=== PATIENT | female | born 1930 | race Caucasian/White ===

== ENCOUNTER 2018-05-10 07:26 | Emergency (ER) | payer MEDICARE ==
[~2018-05-10] VITALS: Ht 154.9 cm; Wt 61.3 kg
[~2018-05-10 07:26] MED LIST: ASP81TEC PO; B12 PO; CALC-20 PO; CRAN1TAB PO; CYAN10007 PO; LVT.15T PO; MULT-856 PO; NITR-33 PO; PANT40TA PO
--- NOTE | 2018-05-10 07:42 | ED Fall/Injury ---
General Chief Complaint: General Problems/Pain Stated Complaint: BACK PAIN Source: patient, family (son) Exam Limitations: no limitations History of Present Illness Date Seen by Provider: May 10, 2018 Time Seen by Provider: 07:30 Initial Comments The patient presents to ER by EMS with chief complaint of a fall 2 weeks ago and having some pain and difficulty walking especially with her right leg. She has pain radiating from her lumbar spine down to her just above her knee. She has no saddle anesthesia, numbness, weakness, tingling or paresthesias, urinary hesitancy or incontinence. She has been to see her primary care doctor Dr. Pineda who has offered to do imaging and been working up her hematuria that's been intermittent for the last few weeks. Patient denies dysuria. She says her hematuria has ceased for now. She is accompanied by her son who gives most of the history. She lives at [facility]. She said she was down on the ground for probably the most 7 minutes before she got the nurse to come down and help her at her independent living suite. Allergies and Home Medications Allergies Coded Allergies: Ceftriaxone Sodium (Unverified Allergy, Unknown, 02/08/11) Sulfa (Sulfonamide Antibiotics) (Unverified Allergy, Unknown, 02/08/11) Codeine (Verified Allergy, 02/07/11) dimenhydrinate (Verified Allergy, 02/07/11) Home Medications Aspirin 81 Mg Tabec, 81 MG PO DAILY, (Reported) Calcium Carbonate/Vitamin D3 1 Each Tablet, 500 MG PO BID, (Reported) Cranberry Ext/C/L. Sporogenes 1 Each Tablet, 3 EACH PO DAILY, (Reported) Cyanocobalamin 1,000 Mcg Tablet.sa, 1,000 MCG PO DAILY, (Reported) Levothyroxine Sodium 150 Mcg Tablet, 150 MCG PO DAILY, (Reported) Multivits W-Fe,Other Min/Lut 1 Each Tablet, 1 EACH PO DAILY, (Reported) Pantoprazole Sodium 40 Mg Tablet.dr, 40 MG PO DAILY, (Reported) Patient Home Medication List Home Medication List Reviewed: Yes Review of Systems Review of Systems Constitutional: No chills, No diaphoresis Eyes: Denies Blindness, Denies Blurred Vision Ears, Nose, Mouth, Throat: denies ear pain, denies ear discharge Respiratory: No cough, No short of breath Cardiovascular: No chest pain, No edema Gastrointestinal: No abdominal pain, No constipation, No diarrhea Genitourinary: No discharge, No dysuria; hematuria Musculoskeletal: see HPI, back pain Past Eripjwf-Xuflun-Cevgjj Hx Patient Social History Alcohol Use: Denies Use Recreational Drug Use: No Smoking Status: Never a Smoker Immunizations Up To Date Date of Pneumonia Vaccine: Jan 06, 2011 Physical Exam Vital Signs Vital Signs - First Documented 05/10/18 07:28 Temp 97.0 Pulse 94 Resp 18 B/P (MAP) 148/71 (96) Pulse Ox 100 O2 Delivery Room Air Capillary Refill : Height, Weight, BMI Height: '" Weight: 135lbs. oz. [id number]; BMI Method: General Appearance: WD/WN, no apparent distress HEENT: PERRL/EOMI, normal ENT inspection, TMs normal, pharynx normal Cardiovascular: normal peripheral pulses, regular rate, rhythm, no edema Respiratory: normal breath sounds, no respiratory distress, no accessory muscle use Peripheral Pulses: 2+ Radial Pulses (R), 2+ Radial Pulses (L) Gastrointestinal: normal bowel sounds, non tender, soft Back: vertebral tenderness (t11-l1 midline) Neurologic/Psychiatric: alert, normal mood/affect, oriented x 3 Skin: normal color, warm/dry Progress/Results/Core Measures Results/Orders Lab Results Laboratory Tests Test 05/10/18 08:42 Range/Units Urine Color YELLOW Urine Clarity VERY CLOUDY H Urine pH 6 5-9 Urine Specific [place] 1.010 L 1.016-1.022 Urine Protein 2+ H NEGATIVE Urine Glucose (UA) NEGATIVE NEGATIVE Urine Ketones NEGATIVE NEGATIVE Urine Nitrite NEGATIVE NEGATIVE Urine Bilirubin NEGATIVE NEGATIVE Urine Urobilinogen NORMAL NORMAL MG/DL Urine Leukocyte Esterase 3+ H NEGATIVE Urine RBC (Auto) 3+ H NEGATIVE Urine RBC NONE /HPF Urine WBC TNTC H /HPF Urine Crystals NONE /LPF Urine Bacteria LARGE H /HPF Urine Casts NONE /LPF Urine Mucus NEGATIVE /LPF Urine Culture Indicated YES My Orders Orders - JOSELO DAVIS Ua Culture If Indicated (05/10/18 07:37) Ct Lumbar Spine Wo (05/10/18 07:42) Tramadol Tablet (Ultram Tablet) (05/10/18 09:00) Urine Culture (05/10/18 08:42) Medications Given in ED Current Medications Medications Dose Ordered Sig/Castro Route Start Time Stop Time Status Last Admin Dose Admin Tramadol HCl 50 mg ONCE ONCE PO 05/10/18 09:00 05/10/18 09:01 DC 05/10/18 08:54 50 MG Vital Signs/I&O 05/10/18 07:28 Temp 97.0 Pulse 94 Resp 18 B/P (MAP) 148/71 (96) Pulse Ox 100 O2 Delivery Room Air Progress Progress Note : Time: 09:[address] of the lumbar spine. UA. Departure Impression Primary Impression: Fracture of T12 vertebra with routine healing Qualified Codes: S22.089D - Unspecified fracture of t11-T12 vertebra, subsequent encounter for fracture with routine healing Additional Impression: UTI (urinary tract infection) Qualified Codes: N30.00 - Acute cystitis without hematuria Disposition: HOME, SELF-CARE Condition: Stable Departure-Patient Inst. Decision time for Depature: 09:17 Referrals: EILEEN PINEDA MD (PCP/Family) Primary Care Physician Patient Instructions: Urinary Tract Infection, Adult (DC), Vertebral Compression Fracture Add. Discharge Instructions: You may obtain a back brace [id number] and wear it on the days that it helps with your back pain. You may also use topical creams such as icy hot or Biofreeze. Use Tylenol in addition to ibuprofen as necessary for your back pain. You may use the tramadol 1 tablet every 6 hours as needed for breakthrough back pain but he you should be cautious as it may increase her risk of falls by causing drowsiness as well as constipation. MiraLAX once or twice a day can help resolve/prevent the constipation. Follow-up with your primary care doctor this week to discuss whether physical therapy would be beneficial for your back pain. supervisor rework the Macrobid and take one capsule twice a day for one week. All discharge instructions reviewed with patient and/or family. Voiced understanding. Scripts Nitrofurantoin Monohyd/M-Cryst (Macrobid 100 mg Capsule) 100 Mg Capsule 1 TAB PO BID for 7 Days, #14 CAP 0 Refills Prov: JOSELO DAVIS 05/10/18 Tramadol HCl (Tramadol HCl) 50 Mg Tablet 50 MG PO Q6H PRN for PAIN, #20 TAB 0 Refills Prov: JOSELO DAVIS 05/10/18 Copy Copies To 1: EILEEN PINEDA MD, TITUS J May 10, 2018 07:42
--- NOTE | 2018-05-10 08:33 | Diagnostic Imaging Report ---
PROCEDURE: CT lumbar spine without contrast. TECHNIQUE: Multiple contiguous axial images were obtained through the lumbar spine without the use of intravenous contrast. Sagittal and coronal reformations were then performed. Auto Exposure Controls were utilized during the CT exam to meet ALARA standards for radiation dose reduction. DATE: May 10, 2018. INDICATION: 87-year-old female, fall 2 weeks ago. Persistent low back pain. COMPARISON: Lumbar spine radiographs February 18, 2011. FINDINGS: There are kyphoplasty changes of T11. There is a superior endplate concavity of T12 with roughly 10-20% height loss and no retropulsed fracture fragment. This is new since February 22, 2011 although of otherwise uncertain exact age. There is no definite visualized fracture line. There is no identified compression deformity or other fracture of the lumbar spine. There are moderate bilateral facet degenerative changes at L5-S1. There is mild disc height loss at this level as well as diffuse disc bulge. There is mild disc height loss at L3-L4 and L4-L5. CT is limited for assessment of disc pathology as well as non-bony causes of foraminal and spinal stenosis. There is no identified acute fracture of the sacrum. The sacroiliac joints are unremarkable in appearance. There are atherosclerotic calcifications. IMPRESSION: 1. Age indeterminate compression deformity of T12 with 10-20% height loss in the retropulsed fracture fragment. This is new since February 2011. 2. No identified compression deformity or fracture of the lumbar spine. 3. Mild disc degenerative changes of the lower lumbar spine and moderate facet degenerative changes at L5-S1. Dictated by: Dictated on workstation # [id number]
[2018-05-10 08:48] LABS: BILIRUBIN,URINE NEGATIVE (NEGATIVE); CLARITY,URINE VERY CLOUDY; COLOR,URINE YELLOW; GLUCOSE, URINE (UA) NEGATIVE (NEGATIVE); KETONES,URINE NEGATIVE (NEGATIVE); LEUKOCYTE ESTERASE ,URINE 3+ (NEGATIVE); NITRITE,URINE NEGATIVE (NEGATIVE); PH,URINE 6 (5-9); PROTEIN,URINE 2+ (NEGATIVE); UROBILINOGEN,URINE NORMAL (NORMAL)
[2018-05-10 08:57] LABS: BACTERIA,URINE LARGE /HPF; WBC,URINE TNTC /HPF
[2018-05-10] MEDS ORDERED: TRAM50TA2 PO (09:20)
[2018-05-10] MEDS ORDERED: NITR-65 PO (09:30)
[2018-05-10 09:37] VITALS: BP 141/73
== END 2018-05-10 09:37 | disposition home or self-care (01) ==
LOC: EDUNIT# 07:26 → ER 07:27
DX: S22.089D Unspecified fracture of T11-T12 vertebra, subsequent encounter for fracture with routine healing (principal); N39.0 Urinary tract infection, site not specified; Z88.2 Allergy status to sulfonamides; Z88.5 Allergy status to narcotic agent; Z88.8 Allergy status to other drugs, medicaments and biological substances; Z79.82 Long term (current) use of aspirin; W19.XXXD Unspecified fall, subsequent encounter
CPT/HCPCS: 72131; 81000; 87077; 87088; 87186

== ENCOUNTER → 2018-05-25 | Outpatient (CLI) | payer MEDICARE ==
[~2018-05-25] MED LIST changes: +NITR-65 PO; +TRAM50TA2 PO
--- NOTE | 2018-05-25 18:27 | Diagnostic Imaging Report ---
INDICATION: Dyspnea on exertion. TIME OF EXAM: 02:21 p.m. COMPARISON: Comparison is made with prior chest from 02/07/2011. FINDINGS: The heart size is stable. The lungs are clear. No infiltrate or failure is detected. The pulmonary vascularity is normal. There is no effusion or pneumothorax. Kyphoplasty changes in the lower thoracic spine are noted. IMPRESSION: No acute cardiopulmonary process is detected. Dictated by: Dictated on workstation # [id number]
== END ==
LOC: RAD 14:08
PROVIDERS: ATTEND Nurse Practitioner Family
DX: R06.09 Other forms of dyspnea (principal); Z98.890 Other specified postprocedural states
CPT/HCPCS: 71046

== ENCOUNTER → 2018-06-12 | Outpatient (CLI) | payer MEDICARE | LOC: WOUNDCARE 12:52 | PROVIDERS: ATTEND Surgery | DX: L89.150 Pressure ulcer of sacral region, unstageable (principal); S22.000A Wedge compression fracture of unspecified thoracic vertebra, initial encounter for closed fracture; R54 Age-related physical debility; E44.0 Moderate protein-calorie malnutrition; R32 Unspecified urinary incontinence; L22 Diaper dermatitis; M40.04 Postural kyphosis, thoracic region; X58.XXXA Exposure to other specified factors, initial encounter | CPT/HCPCS: 11042 ==

== ENCOUNTER → 2018-06-17 | Outpatient (CLI) | payer MEDICARE | LOC: WOUNDCARE 14:43 | PROVIDERS: ATTEND Nurse Practitioner | DX: L89.150 Pressure ulcer of sacral region, unstageable (principal); S22.000A Wedge compression fracture of unspecified thoracic vertebra, initial encounter for closed fracture; R54 Age-related physical debility; E44.0 Moderate protein-calorie malnutrition; R32 Unspecified urinary incontinence; L22 Diaper dermatitis; M40.04 Postural kyphosis, thoracic region; X58.XXXA Exposure to other specified factors, initial encounter | CPT/HCPCS: 99212 ==

== ENCOUNTER → 2018-06-24 | Outpatient (CLI) | payer MEDICARE | LOC: WOUNDCARE 14:34 | PROVIDERS: ATTEND Surgery | DX: L89.153 Pressure ulcer of sacral region, stage 3 (principal); S22.000A Wedge compression fracture of unspecified thoracic vertebra, initial encounter for closed fracture; R54 Age-related physical debility; E44.1 Mild protein-calorie malnutrition; Z68.20 Body mass index [BMI] 20.0-20.9, adult; R32 Unspecified urinary incontinence; M40.04 Postural kyphosis, thoracic region; X58.XXXA Exposure to other specified factors, initial encounter | CPT/HCPCS: 11042 ==

== ENCOUNTER → 2018-07-01 | Outpatient (CLI) | payer MEDICARE | LOC: WOUNDCARE 14:23 | PROVIDERS: ATTEND Surgery | DX: L89.153 Pressure ulcer of sacral region, stage 3 (principal); S22.000A Wedge compression fracture of unspecified thoracic vertebra, initial encounter for closed fracture; R54 Age-related physical debility; E44.1 Mild protein-calorie malnutrition; R32 Unspecified urinary incontinence; M40.04 Postural kyphosis, thoracic region; X58.XXXA Exposure to other specified factors, initial encounter | CPT/HCPCS: 11042; 97605 ==

== ENCOUNTER → 2018-07-08 | Outpatient (CLI) | payer MEDICARE | LOC: WOUNDCARE 14:20 | PROVIDERS: ATTEND Surgery | DX: L89.153 Pressure ulcer of sacral region, stage 3 (principal); S22.000A Wedge compression fracture of unspecified thoracic vertebra, initial encounter for closed fracture; R54 Age-related physical debility; E44.1 Mild protein-calorie malnutrition; Z68.20 Body mass index [BMI] 20.0-20.9, adult; R32 Unspecified urinary incontinence; M40.04 Postural kyphosis, thoracic region; X58.XXXA Exposure to other specified factors, initial encounter | CPT/HCPCS: 11042; 87070; 87077; 87205; 97605 ==

== ENCOUNTER → 2018-07-15 | Outpatient (CLI) | payer MEDICARE | LOC: WOUNDCARE 14:20 | PROVIDERS: ATTEND Surgery | DX: L89.153 Pressure ulcer of sacral region, stage 3 (principal); S22.000A Wedge compression fracture of unspecified thoracic vertebra, initial encounter for closed fracture; R54 Age-related physical debility; E44.1 Mild protein-calorie malnutrition; Z68.20 Body mass index [BMI] 20.0-20.9, adult; R32 Unspecified urinary incontinence; M40.04 Postural kyphosis, thoracic region; X58.XXXA Exposure to other specified factors, initial encounter | CPT/HCPCS: 11042 ==

== ENCOUNTER → 2018-07-22 | Outpatient (CLI) | payer MEDICARE | LOC: WOUNDCARE 14:31 | PROVIDERS: ATTEND Surgery | DX: L89.153 Pressure ulcer of sacral region, stage 3 (principal); S22.000A Wedge compression fracture of unspecified thoracic vertebra, initial encounter for closed fracture; R54 Age-related physical debility; E44.1 Mild protein-calorie malnutrition; R32 Unspecified urinary incontinence; X58.XXXA Exposure to other specified factors, initial encounter | CPT/HCPCS: 99212 ==

== ENCOUNTER → 2018-07-29 | Outpatient (CLI) | payer MEDICARE | LOC: WOUNDCARE 14:22 | PROVIDERS: ATTEND Surgery | DX: L89.153 Pressure ulcer of sacral region, stage 3 (principal); S22.000A Wedge compression fracture of unspecified thoracic vertebra, initial encounter for closed fracture; R54 Age-related physical debility; R32 Unspecified urinary incontinence; E44.1 Mild protein-calorie malnutrition; Z68.20 Body mass index [BMI] 20.0-20.9, adult; X58.XXXA Exposure to other specified factors, initial encounter | CPT/HCPCS: 99212 ==

== ENCOUNTER → 2018-08-05 | Outpatient (CLI) | payer MEDICARE | LOC: WOUNDCARE 15:04 | PROVIDERS: ATTEND Surgery | DX: L89.153 Pressure ulcer of sacral region, stage 3 (principal); S22.000A Wedge compression fracture of unspecified thoracic vertebra, initial encounter for closed fracture; R54 Age-related physical debility; R32 Unspecified urinary incontinence; E44.1 Mild protein-calorie malnutrition; Z68.20 Body mass index [BMI] 20.0-20.9, adult; X58.XXXA Exposure to other specified factors, initial encounter | CPT/HCPCS: 11042 ==

== ENCOUNTER → 2018-08-12 | Outpatient (CLI) | payer MEDICARE | LOC: WOUNDCARE 14:18 | PROVIDERS: ATTEND Surgery | DX: L89.153 Pressure ulcer of sacral region, stage 3 (principal); I96 Gangrene, not elsewhere classified | CPT/HCPCS: 99212 ==